=== PATIENT | male | born 1980 | race Caucasian/White ===

== ENCOUNTER 2017-07-10 18:02 | Emergency (ER) | payer SELFPAY ==
[2017-07-10 18:19] VITALS: BP 145/80; PULSE 103; RESP 16; TEMP 97.2; O2SAT 99
== END 2017-07-10 18:18 | DRG 951 ==
LOC: ED 18:02
DX: Z02.89 Encounter for other administrative examinations (principal)
CPT/HCPCS: 93005; 99282